=== PATIENT | female | born 1950 | race Caucasian/White ===

== ENCOUNTER 2016-12-24 12:31 | Inpatient (IN) | payer OTHER, MEDICARE ==
[~2016-12-24] VITALS: Ht 167.6 cm; Wt 60.0 kg
[~2016-12-24 12:31] MED LIST: AMBI10TA PO; ENAL10TA PO; ESTR1 PO; GLUC1000 PO; HYDR-3366 PO; SERT-132 PO; TRAZ100T5 PO; XANA2TAB2 PO; ZOCO40TA PO
[2016-12-24 12:34] VITALS: BP_SYST 118; BP_SYST 126; BP_DIAS 70; BP_DIAS 74; PULSE 85; PULSE 90; RESP 14; RESP 17; TEMP 97.7; O2SAT 98
--- NOTE | 2016-12-24 12:49 | PD ---
Physical Exam Time Seen by Provider: 12:46 Narrative 66yo F w c/o infection to left eye socket x 3days. 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 Had same symptoms one year ago and was hospitalized for cellulitis of left eye x1 week. Denies fever. Report nausea w/o vomiting. Patient stable. Patient seen in triage. Awaiting bed placement. Data Data Last Documented VS Vital Signs Date Time Temp Pulse Resp B/P Pulse Ox O2 Delivery O2 Flow Rate FiO2 12/24/16 12:34 97.7 85 14 126/74 98 MDM Supervised Visit with YOHANNES: Kacy German Dec 24, 2016 12:49
[2016-12-24] MEDS ORDERED: ONDANSETRON HCL 4 MG/2 ML VIAL IV PUSH ONE ×2 (13:30→15:30)
[2016-12-24] MEDS ORDERED: HYDROmorphone HCL PF 1 MG/ML VIAL IV PUSH ONE ×3 (13:30→22:00)
[2016-12-24] MEDS ORDERED: VANCOMYCIN INJ 1,000 MG in SODIUM CHLOR 0.9% 250 ML INJ 250 ML IV ONE (13:30)
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
[2016-12-24 14:15] LABS: AUTOMATED NEUTROPHIL # 8.8 TH/MM3 (1.8-7.7); BASOPHIL # 0.1 TH/MM3 (0-0.2); BASOPHIL % 0.4 % (0.0-2.0); EOSINOPHIL # 0.2 TH/MM3 (0-0.4); EOSINOPHIL % 1.4 % (0.0-4.0); HEMO FLAGS DIFF FINAL; LYMPH % 20.9 % (9.0-44.0); LYMPHOCYTE # 2.6 TH/MM3 (1.0-4.8); MEAN CELL VOLUME 92.1 FL (80.0-100.0); MEAN CORPUSCULAR HEMOGLOBIN 31.6 PG (27.0-34.0); MEAN CORPUSCULAR HGB CONC 34.3 % (32.0-36.0); MONO % 7.4 % (0.0-8.0); NEUT % 69.9 % (16.0-70.0); PLATELET COUNT 267 TH/MM3 (150-450); RED BLOOD COUNT 4.23 MIL/MM3 (4.00-5.30); RED CELL DISTRIBUTION WIDTH 13.8 % (11.6-17.2); WHITE BLOOD COUNT 12.6 TH/MM3 (4.0-11.0)
[2016-12-24 14:41] LABS: BICARBONATE 22.6 MEQ/L (21.0-32.0)
[2016-12-24 14:42] LABS: POTASSIUM 4.6 MEQ/L (3.5-5.1)
[2016-12-24 14:56] VITALS: BP 131/70; PULSE 72; RESP 18; O2SAT 97
[2016-12-24] MEDS ORDERED: IOHEXOL 350 MG/ML 10 ML VIAL (for RAD DIAG) IV ONE (15:40)
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
[2016-12-24] MEDS ORDERED: DEXTROSE 50% IN WATER 50 ML VIAL(D50) IV PUSH PRN (16:30)
[2016-12-24] MEDS ORDERED: GLUCAGON 1 MG/ML VIAL OTHER PRN (16:30)
[2016-12-24] MEDS ORDERED: RESP: ALBUTEROL 1.25 MG/3 ML NEB (PRN) NEB (17:00)
[2016-12-24] MEDS ORDERED: ACETAMINOPHEN 325 MG TAB PO PRN (17:00)
[2016-12-24] MEDS ORDERED: Vancomycin Consult Pharmacy 1 EA OTHER SCH (17:00)
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
[2016-12-24 18:10] VITALS: BP 141/71; PULSE 77; RESP 18; O2SAT 97
[2016-12-24] MEDS: cefTRIAXone INJ 1,000 MG in SODIUM CHLORIDE 0.9% INJ 100 ML IV SCH (18:29)
[2016-12-24] MEDS: ACETAMINOPHEN/HYDROcodone 325 MG/5 MG TAB PO PRN (18:34)
[2016-12-24 18:45] VITALS: BP 114/65; PULSE 58; RESP 16; TEMP 96.2; O2SAT 98
[2016-12-24 20:00] VITALS: BP 114/62; PULSE 60; RESP 20; TEMP 96; O2SAT 91
[2016-12-24] MEDS: PRAVASTATIN SOD 80 MG TAB PO SCH (21:24)
[2016-12-24] MEDS: traZODone HCL 100 MG TAB PO SCH (21:24)
[2016-12-24] MEDS: ALPRAZolam 1 MG TAB PO PRN (21:24)
[2016-12-24] MEDS: INSULIN ASPART SUPPLEMENTAL SCALE SQ SCH (21:27)
[2016-12-24] MEDS: ZOLPIDEM TARTRATE 10 MG TAB PO PRN (22:39)
[2016-12-25] VITALS: BP 100/54; PULSE 60; RESP 20; TEMP 96.7; O2SAT 91
[2016-12-25 04:00] VITALS: BP 92/55; PULSE 78; RESP 20; TEMP 96.6; O2SAT 95
[2016-12-25] MEDS: ACETAMINOPHEN/HYDROcodone 325 MG/5 MG TAB PO PRN ×2 (04:52→11:01)
[2016-12-25] MEDS: INSULIN ASPART SUPPLEMENTAL SCALE SQ SCH ×4 (06:13→21:14)
[2016-12-25] MEDS: ENALAPRIL MALEATE 10 MG TAB PO SCH (08:59)
[2016-12-25] MEDS: ESTRADIOL 1 MG TAB PO SCH (08:59)
[2016-12-25] MEDS: SERTRALINE HCL 50 MG TAB PO SCH (08:59)
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
[2016-12-25 10:17] VITALS: BP 118/63; PULSE 50; RESP 16; TEMP 96.2; O2SAT 97
[2016-12-25] MEDS: VANCOMYCIN INJ 1,250 MG in SODIUM CHLOR 0.9% 250 ML INJ 250 ML IV SCH (11:01)
--- NOTE | 2016-12-25 12:25 | HHI.PR ---
Subjective Remarks resting comfortably in no distress. pain is better. no fever. Objective Vitals Vital Signs Date Time Temp Pulse Resp B/P Pulse Ox O2 Delivery O2 Flow Rate FiO2 12/25/16 10:17 96.2 50 16 118/63 97 12/25/16 04:00 96.6 78 20 92/55 95 12/25/16 00:00 96.7 60 20 100/54 91 12/24/16 20:00 96.0 60 20 114/62 91 12/24/16 18:45 96.2 58 16 114/65 98 12/24/16 18:10 77 18 141/71 97 12/24/16 14:56 72 18 131/70 97 12/24/16 12:34 97.7 85 14 126/74 98 I/O 12/24/16 12/24/16 12/24/16 12/25/16 12/25/16 12/25/16 07:00 15:00 23:00 07:00 15:00 23:00 Intake Total 240 ml Balance 240 ml Intake Oral 240 ml # Voids 2 2 # Bowel Movements 0 0 Result Diagram: 12/24/16 1330 12/25/16 0908 Imaging Last Impressions Maxillofacial CT 12/24/16 0000 Signed Impressions: Service Date/Time: December 15:34 - CONCLUSION: Stable postsurgical and posttraumatic changes of the left lobe not significantly changed since 2014. Nate Cárdenas MD Objective Remarks GENERAL: This is a well-nourished, well-developed patient, in no apparent distress. HEENT; left eye erythema and discharge is better. CARDIOVASCULAR: Regular rate and regular rhythm without murmurs, gallops, or rubs. RESPIRATORY: Clear to auscultation. Breath sounds equal bilaterally. No wheezes , rales, or rhonchi. GASTROINTESTINAL: Abdomen soft, non-tender, nondistended. Normal, active bowel sounds MUSCULOSKELETAL: Extremities without clubbing, cyanosis, or edema. NEURO: Alert & Oriented x4 to person, place, time, situation. Moves all ext x4 Medications and IVs Current Medications Vancomycin HCl/ Sodium Chloride (Vancomycin Inj/ NS 250 ml Inj) 250 ml @ 250 mls/hr ONCE ONCE IV Last administered on 12/24/16t 14:13; Start 12/24/16 at 13 :30; Stop 12/24/16 at 14:29; Status DC Hydromorphone HCl (Dilaudid Pf Inj) 0.5 mg ONCE ONCE IV PUSH Last administered on 12/24/16 14:12; Start 12/24/16 at 13:30; Stop 12/24/16 at 13:31 ; Status DC Ondansetron HCl (Zofran Inj) 4 mg ONCE ONCE IV PUSH Last administered on 14:12; Start 12/24/16 at 13:30; Stop 12/24/16 at 13:31; Status DC Hydromorphone HCl (Dilaudid Pf Inj) 0.5 mg ONCE ONCE IV PUSH Last administered on 12/24/16 15:36; Start 12/24/16 at 15:30; Stop 12/24/16 at 15:31 ; Status DC Ondansetron HCl (Zofran Inj) 4 mg ONCE ONCE IV PUSH Last administered on 15:36; Start 12/24/16 at 15:30; Stop 12/24/16 at 15:31; Status DC Iohexol (Omnipaque 350 Inj) 75 ml STK-MED ONCE IV Last administered on 15:40; Start 12/24/16 at 15:40; Stop 12/24/16 at 15:41; Status DC Acetaminophen (Tylenol) 650 mg Q4H PRN PO FEVER\ PAIN SCALE LESS THAN 5; Start 12/24/16 at 17:00 Acetaminophen/ Hydrocodone Bitart ([place] 5-325 Mg) 1 tab Q4H PRN PO PAIN SCALE GREATER THAN 5 Last administered on 12/25/16 11:01; Start 12/24/16 at 16: 30 Ondansetron HCl (Zofran Inj) 4 mg Q8HR PRN IV PUSH NAUSEA; Start 12/24/16 at 22 :00 Alprazolam (Xanax) 2 mg BID PRN PO ANXIETY Last administered on 12/24/16 21:24 ; Start 12/24/16 at 21:00 Enalapril Maleate (Vasotec) 10 mg DAILY PO Last administered on 12/25/16 08:59 ; Start 12/25/16 at 09:00 Estradiol (Estradiol) 1 mg DAILY PO Last administered on 12/25/16 08:59; Start 12/25/16 at 09:00 Sertraline HCl (Zoloft) 50 mg DAILY PO Last administered on 12/25/16 08:59; Start 12/25/16 at 09:00 Zolpidem Tartrate (Ambien) 10 mg HS PRN PO INSOMNIA Last administered on 22:39; Start 12/24/16 at 21:00 Pravastatin Sodium (Pravachol) 80 mg HS PO Last administered on 12/24/16 21:24 ; Start 12/24/16 at 21:00 Trazodone HCl (Desyrel) 100 mg HS PO Last administered on 12/24/16 21:24; Start 12/24/16 at 21:00 Dextrose (D50w (Vial) Inj) 25 ml UNSCH PRN IV PUSH HYPOGLYCEMIA-SEE COMMENTS; Start 12/24/16 at 16:30 Glucagon (Glucagon Inj) 1 mg UNSCH PRN OTHER HYPOGLYCEMIA-SEE COMMENTS; Start 12/24/16 at 16:30 Insulin Aspart 1 1 ACHS SLIDING SCALE SQ Last administered on 12/25/16 11:01 ; Start 12/24/16 at 21:00 Pharmacy Profile Note 0 ml @ 0 mls/hr UNSCH OTHER ; Start 12/24/16 at 17:00 Ceftriaxone Sodium/Sodium Chloride (Rocephin Inj/NS Inj) 100 ml @ 200 mls/hr Q24H IV Last administered on 12/24/16 18:29; Start 12/24/16 at 18:00 Albuterol Sulfate 1.25 mg 1.25 mg Q6HR NEB PRN NEB SHORTNESS OF BREATH; Start 12/24/16 at 17:00 Vancomycin HCl/ Sodium Chloride (Vancomycin Inj/ NS 250 ml Inj) 262.5 ml @ 250 mls/hr Q24H IV Last administered on 12/25/16 11:01; Start 12/25/16 at 12:00 Miscellaneous Information SPECIFIC LAB TO BE DRAWN:VANCOMYCIN TROUGH DATE TO... ONCE ONCE .XX ; Start 12/27/16 at 11:45; Stop 12/27/16 at 11:46 Hydromorphone HCl (Dilaudid Pf Inj) 0.5 mg ONCE ONCE IV PUSH Last administered on 12/24/16 22:40; Start 12/24/16 at 22:00; Stop 12/24/16 at 22:02 ; Status DC Tobramycin/ Dexamethasone (Tobradex Opth Susp) 1 drop Q6HR LEFT EYE ; Start at 13:00 A/P Assessment and Plan A/P - preorbital cellulitis left eye- with history of enucleation continue with broad spectrum IV antibiotics and pain control- ophthalmology consult appreciated; Tobradex eye drop was added. -diabetes mellitus; accu-check with SSI -hypertension/ dyslipidemia/ COPD; resumed home meds -DVT prophylaxis with SCD's Discharge Planning possible dc home in am if continues to improve. Renard Ennis MD Dec 25, 2016 12:25
[2016-12-25 12:26] VITALS: BP 95/59; PULSE 61; RESP 16; TEMP 96.2; O2SAT 96
[2016-12-25] MEDS: TOBRAMYCIN 0.3%/DEXAMETHASONE 0.1% OPHT SUSP 5 ML BTL LEFT EYE SCH ×3 (13:00→23:30)
[2016-12-25] MEDS: ACETAMINOPHEN/HYDROcodone 325 MG/10 MG TAB PO PRN ×2 (15:27→21:15)
[2016-12-25] MEDS: cefTRIAXone INJ 1,000 MG in SODIUM CHLORIDE 0.9% INJ 100 ML IV SCH (17:21)
[2016-12-25 18:52] VITALS: BP 112/56; PULSE 62; RESP 16; TEMP 96.8; O2SAT 97
[2016-12-25] MEDS: traZODone HCL 100 MG TAB PO SCH (21:14)
[2016-12-25] MEDS: PRAVASTATIN SOD 80 MG TAB PO SCH (21:14)
[2016-12-25 22:00] VITALS: BP 99/65; PULSE 55; RESP 20; TEMP 97.2; O2SAT 98
[2016-12-25] MEDS: ZOLPIDEM TARTRATE 10 MG TAB PO PRN (23:30)
[2016-12-25] MEDS: ALPRAZolam 1 MG TAB PO PRN (23:30)
[2016-12-26] VITALS: BP 103/60; PULSE 58; RESP 20; TEMP 96; O2SAT 98
[2016-12-26 04:00] VITALS: BP 91/58; PULSE 54; RESP 20; TEMP 96.4; O2SAT 98
[2016-12-26] MEDS: ACETAMINOPHEN/HYDROcodone 325 MG/10 MG TAB PO PRN ×3 (04:13→18:11)
[2016-12-26] MEDS: ONDANSETRON HCL 4 MG/2 ML VIAL IV PUSH PRN ×2 (04:14→11:04)
[2016-12-26] MEDS: TOBRAMYCIN 0.3%/DEXAMETHASONE 0.1% OPHT SUSP 5 ML BTL LEFT EYE SCH ×4 (05:42→23:54)
[2016-12-26] MEDS: INSULIN ASPART SUPPLEMENTAL SCALE SQ SCH ×4 (06:20→20:37)
[2016-12-26 08:00] VITALS: BP 108/58; PULSE 50; RESP 16; TEMP 96.8; O2SAT 94
[2016-12-26] MEDS: SERTRALINE HCL 50 MG TAB PO SCH (08:22)
[2016-12-26] MEDS: ESTRADIOL 1 MG TAB PO SCH (08:22)
[2016-12-26] MEDS: ENALAPRIL MALEATE 10 MG TAB PO SCH (08:23)
[2016-12-26] MEDS: VANCOMYCIN INJ 1,250 MG in SODIUM CHLOR 0.9% 250 ML INJ 250 ML IV SCH (11:04)
--- NOTE | 2016-12-26 11:17 | HHI.PR ---
Subjective Remarks resting comfortably with no distress. no fever. pain is better. noted that BP is on low side. d/w the RN and no other acute issues over night. Objective Vitals Vital Signs Date Time Temp Pulse Resp B/P Pulse Ox O2 Delivery O2 Flow Rate FiO2 12/26/16 08:00 96.8 50 16 108/58 94 12/26/16 04:00 96.4 54 20 91/58 98 12/26/16 00:00 96.0 58 20 103/60 98 12/25/16 22:00 97.2 55 20 99/65 98 12/25/16 18:52 96.8 62 16 112/56 97 12/25/16 16:27 18 12/25/16 12:26 96.2 61 16 95/59 96 I/O 12/25/16 12/25/16 12/25/16 12/26/16 12/26/16 12/26/16 07:00 15:00 23:00 07:00 15:00 23:00 Intake Total 253 ml Balance 253 ml IV Total 253 ml # Voids 2 7 # Bowel Movements 0 Result Diagram: 12/24/16 1330 12/26/16 0734 Imaging Last Impressions Maxillofacial CT 12/24/16 0000 Signed Impressions: Service Date/Time: December 15:34 - CONCLUSION: Stable postsurgical and posttraumatic changes of the left lobe not significantly changed since 2014. Nate Cárdenas MD Objective Remarks GENERAL: This is a well-nourished, well-developed patient, in no apparent distress. HEENT; left eye erythema and discharge has improved. CARDIOVASCULAR: Regular rate and regular rhythm without murmurs, gallops, or rubs. RESPIRATORY: Clear to auscultation. Breath sounds equal bilaterally. No wheezes , rales, or rhonchi. GASTROINTESTINAL: Abdomen soft, non-tender, nondistended. Normal, active bowel sounds MUSCULOSKELETAL: Extremities without clubbing, cyanosis, or edema. NEURO: Alert & Oriented x4 to person, place, time, situation. Moves all ext x4 Medications and IVs Current Medications Vancomycin HCl/ Sodium Chloride (Vancomycin Inj/ NS 250 ml Inj) 250 ml @ 250 mls/hr ONCE ONCE IV Last administered on 12/24/16t 14:13; Start 12/24/16 at 13 :30; Stop 12/24/16 at 14:29; Status DC Hydromorphone HCl (Dilaudid Pf Inj) 0.5 mg ONCE ONCE IV PUSH Last administered on 12/24/16 14:12; Start 12/24/16 at 13:30; Stop 12/24/16 at 13:31 ; Status DC Ondansetron HCl (Zofran Inj) 4 mg ONCE ONCE IV PUSH Last administered on 14:12; Start 12/24/16 at 13:30; Stop 12/24/16 at 13:31; Status DC Hydromorphone HCl (Dilaudid Pf Inj) 0.5 mg ONCE ONCE IV PUSH Last administered on 12/24/16 15:36; Start 12/24/16 at 15:30; Stop 12/24/16 at 15:31 ; Status DC Ondansetron HCl (Zofran Inj) 4 mg ONCE ONCE IV PUSH Last administered on 15:36; Start 12/24/16 at 15:30; Stop 12/24/16 at 15:31; Status DC Iohexol (Omnipaque 350 Inj) 75 ml STK-MED ONCE IV Last administered on 15:40; Start 12/24/16 at 15:40; Stop 12/24/16 at 15:41; Status DC Acetaminophen (Tylenol) 650 mg Q4H PRN PO FEVER\ PAIN SCALE LESS THAN 5; Start 12/24/16 at 17:00 Acetaminophen/ Hydrocodone Bitart ([place] 5-325 Mg) 1 tab Q4H PRN PO PAIN SCALE GREATER THAN 5 Last administered on 12/25/16 11:01; Start 12/24/16 at 16: 30; Stop 12/25/16 at 12:24; Status DC Ondansetron HCl (Zofran Inj) 4 mg Q8HR PRN IV PUSH NAUSEA Last administered on 12/26/16 04:14; Start 12/24/16 at 22:00 Alprazolam (Xanax) 2 mg BID PRN PO ANXIETY Last administered on 12/25/16 23:30 ; Start 12/24/16 at 21:00 Enalapril Maleate (Vasotec) 10 mg DAILY PO Last administered on 12/25/16 08:59 ; Start 12/25/16 at 09:00 Estradiol (Estradiol) 1 mg DAILY PO Last administered on 12/26/16 08:22; Start 12/25/16 at 09:00 Sertraline HCl (Zoloft) 50 mg DAILY PO Last administered on 12/26/16 08:22; Start 12/25/16 at 09:00 Zolpidem Tartrate (Ambien) 10 mg HS PRN PO INSOMNIA Last administered on 23:30; Start 12/24/16 at 21:00 Pravastatin Sodium (Pravachol) 80 mg HS PO Last administered on 12/25/16 21:14 ; Start 12/24/16 at 21:00 Trazodone HCl (Desyrel) 100 mg HS PO Last administered on 12/25/16 21:14; Start 12/24/16 at 21:00 Dextrose (D50w (Vial) Inj) 25 ml UNSCH PRN IV PUSH HYPOGLYCEMIA-SEE COMMENTS; Start 12/24/16 at 16:30 Glucagon (Glucagon Inj) 1 mg UNSCH PRN OTHER HYPOGLYCEMIA-SEE COMMENTS; Start 12/24/16 at 16:30 Insulin Aspart 1 1 ACHS SLIDING SCALE SQ Last administered on 12/26/16 06:20 ; Start 12/24/16 at 21:00 Pharmacy Profile Note 0 ml @ 0 mls/hr UNSCH OTHER ; Start 12/24/16 at 17:00 Ceftriaxone Sodium/Sodium Chloride (Rocephin Inj/NS Inj) 100 ml @ 200 mls/hr Q24H IV Last administered on 12/25/16 17:21; Start 12/24/16 at 18:00 Albuterol Sulfate 1.25 mg 1.25 mg Q6HR NEB PRN NEB SHORTNESS OF BREATH; Start 12/24/16 at 17:00 Vancomycin HCl/ Sodium Chloride (Vancomycin Inj/ NS 250 ml Inj) 262.5 ml @ 250 mls/hr Q24H IV Last administered on 12/25/16 11:01; Start 12/25/16 at 12:00 Miscellaneous Information SPECIFIC LAB TO BE DRAWN:VANCOMYCIN TROUGH DATE TO... ONCE ONCE .XX ; Start 12/27/16 at 11:45; Stop 12/27/16 at 11:46 Hydromorphone HCl (Dilaudid Pf Inj) 0.5 mg ONCE ONCE IV PUSH Last administered on 12/24/16 22:40; Start 12/24/16 at 22:00; Stop 12/24/16 at 22:02 ; Status DC Tobramycin/ Dexamethasone (Tobradex Opth Susp) 1 drop Q6HR LEFT EYE Last administered on 12/26/16 05:42; Start 12/25/16 at 13:00 Acetaminophen/ Hydrocodone Bitart ([place] 10-325 Mg) 1 tab Q6H PRN PO PAIN > 5 Last administered on 12/26/16 04:13; Start 12/25/16 at 12:30 A/P Assessment and Plan A/P - preorbital cellulitis left eye- with history of enucleation - improving. continue with broad spectrum IV antibiotics and pain control- ophthalmology consult appreciated; Tobradex eye drop was added. -diabetes mellitus; accu-check with SSI -hypertension with BP on low side; hold enalapril and continue to monitor - dyslipidemia/ COPD; resumed home meds -DVT prophylaxis with SCD's Discharge Planning dc home in am if stable. Renard Ennis MD Dec 26, 2016 11:17
[2016-12-26] MEDS: NICOTINE 21 MG/24 HR PATCH T-DERMAL SCH (11:35)
[2016-12-26 12:00] VITALS: BP 123/64; PULSE 54; RESP 18; TEMP 97.2; O2SAT 97
[2016-12-26 16:00] VITALS: BP 124/69; PULSE 68; RESP 17; TEMP 95.8; O2SAT 97
[2016-12-26] MEDS: cefTRIAXone INJ 1,000 MG in SODIUM CHLORIDE 0.9% INJ 100 ML IV SCH (18:11)
[2016-12-26] MEDS: traZODone HCL 100 MG TAB PO SCH (20:37)
[2016-12-26] MEDS: ALPRAZolam 1 MG TAB PO PRN (20:37)
[2016-12-26] MEDS: PRAVASTATIN SOD 80 MG TAB PO SCH (20:37)
[2016-12-26] MEDS: ZOLPIDEM TARTRATE 10 MG TAB PO PRN (22:02)
[2016-12-26 22:30] VITALS: BP 125/60; PULSE 68; RESP 17; TEMP 97.7; O2SAT 98
[2016-12-27 05:15] VITALS: BP 115/69; PULSE 64; RESP 17; TEMP 97.1; O2SAT 98
[2016-12-27] MEDS: TOBRAMYCIN 0.3%/DEXAMETHASONE 0.1% OPHT SUSP 5 ML BTL LEFT EYE SCH ×2 (06:09→12:00)
[2016-12-27] MEDS: ACETAMINOPHEN/HYDROcodone 325 MG/10 MG TAB PO PRN ×2 (06:10→12:45)
[2016-12-27] MEDS: INSULIN ASPART SUPPLEMENTAL SCALE SQ SCH ×2 (06:53→11:00)
[2016-12-27 08:00] VITALS: BP 124/60; PULSE 58; RESP 18; TEMP 98.2; O2SAT 96
[2016-12-27] MEDS: SERTRALINE HCL 50 MG TAB PO SCH (08:22)
[2016-12-27] MEDS: ESTRADIOL 1 MG TAB PO SCH (08:22)
[2016-12-27] MEDS: NICOTINE 21 MG/24 HR PATCH T-DERMAL SCH (08:22)
[2016-12-27] MEDS ORDERED: REMOVE OLD PATCH T-DERMAL SCH (09:00)
--- NOTE | 2016-12-27 09:26 | HHI.PR ---
Subjective Remarks resting comfortably with no distress. no fever. the left eye inflammation has much improved. no other new complaints. Objective Vitals Vital Signs Date Time Temp Pulse Resp B/P Pulse Ox O2 Delivery O2 Flow Rate FiO2 12/27/16 08:00 98.2 58 18 124/60 96 12/27/16 05:15 97.1 64 17 115/69 98 12/26/16 22:30 97.7 68 17 125/60 98 12/26/16 16:00 95.8 68 17 124/69 97 12/26/16 12:00 97.2 54 18 123/64 97 I/O 12/26/16 12/26/16 12/26/16 12/27/16 12/27/16 12/27/16 07:00 15:00 23:00 07:00 15:00 23:00 Intake Total 800 ml 600 ml Balance 800 ml 600 ml Intake Oral 800 ml 600 ml # Voids 1 2 # Bowel Movements 0 0 Result Diagram: 12/24/16 1330 12/26/16 0734 Imaging Last Impressions Maxillofacial CT 12/24/16 0000 Signed Impressions: Service Date/Time: December 15:34 - CONCLUSION: Stable postsurgical and posttraumatic changes of the left lobe not significantly changed since 2014. Nate Cárdenas MD Objective Remarks GENERAL: This is a well-nourished, well-developed patient, in no apparent distress. HEENT; left eye erythema and discharge has much improved. CARDIOVASCULAR: Regular rate and regular rhythm without murmurs, gallops, or rubs. RESPIRATORY: Clear to auscultation. Breath sounds equal bilaterally. No wheezes , rales, or rhonchi. GASTROINTESTINAL: Abdomen soft, non-tender, nondistended. Normal, active bowel sounds MUSCULOSKELETAL: Extremities without clubbing, cyanosis, or edema. NEURO: Alert & Oriented x4 to person, place, time, situation. Moves all ext x4 Procedures none Medications and IVs Current Medications Vancomycin HCl/ Sodium Chloride (Vancomycin Inj/ NS 250 ml Inj) 250 ml @ 250 mls/hr ONCE ONCE IV Last administered on 12/24/16t 14:13; Start 12/24/16 at 13 :30; Stop 12/24/16 at 14:29; Status DC Hydromorphone HCl (Dilaudid Pf Inj) 0.5 mg ONCE ONCE IV PUSH Last administered on 12/24/16 14:12; Start 12/24/16 at 13:30; Stop 12/24/16 at 13:31 ; Status DC Ondansetron HCl (Zofran Inj) 4 mg ONCE ONCE IV PUSH Last administered on 14:12; Start 12/24/16 at 13:30; Stop 12/24/16 at 13:31; Status DC Hydromorphone HCl (Dilaudid Pf Inj) 0.5 mg ONCE ONCE IV PUSH Last administered on 12/24/16 15:36; Start 12/24/16 at 15:30; Stop 12/24/16 at 15:31 ; Status DC Ondansetron HCl (Zofran Inj) 4 mg ONCE ONCE IV PUSH Last administered on 15:36; Start 12/24/16 at 15:30; Stop 12/24/16 at 15:31; Status DC Iohexol (Omnipaque 350 Inj) 75 ml STK-MED ONCE IV Last administered on 15:40; Start 12/24/16 at 15:40; Stop 12/24/16 at 15:41; Status DC Acetaminophen (Tylenol) 650 mg Q4H PRN PO FEVER\ PAIN SCALE LESS THAN 5; Start 12/24/16 at 17:00 Acetaminophen/ Hydrocodone Bitart ([place] 5-325 Mg) 1 tab Q4H PRN PO PAIN SCALE GREATER THAN 5 Last administered on 12/25/16 11:01; Start 12/24/16 at 16: 30; Stop 12/25/16 at 12:24; Status DC Ondansetron HCl (Zofran Inj) 4 mg Q8HR PRN IV PUSH NAUSEA Last administered on 12/26/16 11:04; Start 12/24/16 at 22:00 Alprazolam (Xanax) 2 mg BID PRN PO ANXIETY Last administered on 12/26/16 20:37 ; Start 12/24/16 at 21:00 Enalapril Maleate (Vasotec) 10 mg DAILY PO Last administered on 12/25/16 08:59 ; Start 12/25/16 at 09:00; Status Hold Estradiol (Estradiol) 1 mg DAILY PO Last administered on 12/27/16 08:22; Start 12/25/16 at 09:00 Sertraline HCl (Zoloft) 50 mg DAILY PO Last administered on 12/27/16 08:22; Start 12/25/16 at 09:00 Zolpidem Tartrate (Ambien) 10 mg HS PRN PO INSOMNIA Last administered on 22:02; Start 12/24/16 at 21:00 Pravastatin Sodium (Pravachol) 80 mg HS PO Last administered on 12/26/16 20:37 ; Start 12/24/16 at 21:00 Trazodone HCl (Desyrel) 100 mg HS PO Last administered on 12/26/16 20:37; Start 12/24/16 at 21:00 Dextrose (D50w (Vial) Inj) 25 ml UNSCH PRN IV PUSH HYPOGLYCEMIA-SEE COMMENTS; Start 12/24/16 at 16:30 Glucagon (Glucagon Inj) 1 mg UNSCH PRN OTHER HYPOGLYCEMIA-SEE COMMENTS; Start 12/24/16 at 16:30 Insulin Aspart 1 1 ACHS SLIDING SCALE SQ Last administered on 12/27/16 06:53 ; Start 12/24/16 at 21:00 Pharmacy Profile Note 0 ml @ 0 mls/hr UNSCH OTHER ; Start 12/24/16 at 17:00 Ceftriaxone Sodium/Sodium Chloride (Rocephin Inj/NS Inj) 100 ml @ 200 mls/hr Q24H IV Last administered on 12/26/16 18:11; Start 12/24/16 at 18:00 Albuterol Sulfate 1.25 mg 1.25 mg Q6HR NEB PRN NEB SHORTNESS OF BREATH; Start 12/24/16 at 17:00 Vancomycin HCl/ Sodium Chloride (Vancomycin Inj/ NS 250 ml Inj) 262.5 ml @ 250 mls/hr Q24H IV Last administered on 12/26/16 11:04; Start 12/25/16 at 12:00 Miscellaneous Information SPECIFIC LAB TO BE DRAWN:VANCOMYCIN TROUGH DATE TO... ONCE ONCE .XX ; Start 12/27/16 at 11:45; Stop 12/27/16 at 11:46 Hydromorphone HCl (Dilaudid Pf Inj) 0.5 mg ONCE ONCE IV PUSH Last administered on 12/24/16 22:40; Start 12/24/16 at 22:00; Stop 12/24/16 at 22:02 ; Status DC Tobramycin/ Dexamethasone (Tobradex Opth Susp) 1 drop Q6HR LEFT EYE Last administered on 12/27/16 06:09; Start 12/25/16 at 13:00 Acetaminophen/ Hydrocodone Bitart ([place] 10-325 Mg) 1 tab Q6H PRN PO PAIN > 5 Last administered on 12/27/16 06:10; Start 12/25/16 at 12:30 Nicotine (Habitrol 21 Mg Patch.24 Hr) 1 patch DAILY T-DERMAL Last administered on 12/27/16 08:22; Start 12/26/16 at 12:00 Miscellaneous Information 1 DAILY T-DERMAL Last administered on 12/27/16 08:22 ; Start 12/27/16 at 09:00 A/P Assessment and Plan A/P - preorbital cellulitis left eye- with history of enucleation -has much improved. continue with broad spectrum IV antibiotics and pain control- ophthalmology consult appreciated; Tobradex eye drop was added. will switch to po abx upon discharge. -diabetes mellitus; accu-check with SSI -hypertension with BP on low side; will decrease the dose of enalapril. f/u as outpatient. - dyslipidemia/ COPD; resumed home meds -DVT prophylaxis with SCD's Discharge Planning dc home today. see med list. f/u; pcp. d/w the patient. Renard Ennis MD Dec 27, 2016 09:26
[2016-12-27] MEDS ORDERED: BACT800T5 PO ×2 (09:31→09:35)
[2016-12-27] MEDS ORDERED: NICO21DI2 T-DERMAL (09:31)
[2016-12-27] MEDS ORDERED: AUGM875T PO ×2 (09:31→09:35)
[2016-12-27] MEDS ORDERED: TOBRO LEFT EYE ×2 (09:31→09:35)
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
[2016-12-27] MEDS ORDERED: ENAL2.5T PO (09:42)
[2016-12-27] MEDS ORDERED: PHARMACY ORDERED LAB ONE (11:45)
[2016-12-27] MEDS: ONDANSETRON HCL 4 MG/2 ML VIAL IV PUSH PRN (11:51)
[2016-12-27 12:00] VITALS: BP 128/62; PULSE 54; RESP 18; TEMP 98.1; O2SAT 96
[2016-12-27] MEDS: VANCOMYCIN INJ 1,250 MG in SODIUM CHLOR 0.9% 250 ML INJ 250 ML IV SCH (12:44)
[2016-12-28] MEDS ORDERED: VANCOMYCIN 1,000 MG/NS 250 ML IV SCH ×2
[2016-12-28] MEDS ORDERED: PHARMACY ORDERED LAB ONE (23:45)
== END 2016-12-27 16:55 | disposition home or self-care (01) | DRG 603 ==
LOC: NEPC 12:31 → NEDA 16:25 → OBSVTOIN 17:11 → N05B 18:54
PROVIDERS: ADMIT Internal Medicine; ATTEND Internal Medicine
DX: L03.213 Periorbital cellulitis (principal); J44.9 Chronic obstructive pulmonary disease, unspecified; I10 Essential (primary) hypertension; E78.5 Hyperlipidemia, unspecified; E11.9 Type 2 diabetes mellitus without complications; F41.9 Anxiety disorder, unspecified; F17.210 Nicotine dependence, cigarettes, uncomplicated; G47.00 Insomnia, unspecified; H00.16 Chalazion left eye, unspecified eyelid; Z79.84 Long term (current) use of oral hypoglycemic drugs
CPT/HCPCS: 70487; 80048; 80202; 82565; 82948; 83735; 85025; 86140; 86403; 87040; 87070; 87205; 96365; 96366; 96374; 96375; 96376; J0696; J1170; J1815; J2405; J3370; J7050; Q9967

== ENCOUNTER 2017-01-06 07:01 | Day surgery (SDC) | payer OTHER ==
[~2017-01-06] VITALS: Ht 157.5 cm; Wt 54.5 kg
[~2017-01-06 07:01] MED LIST changes: +AUGM875T PO; +BACT800T5 PO; -ENAL10TA PO; +ENAL2.5T PO; +NICO21DI2 T-DERMAL; +TOBRO LEFT EYE
[2017-01-06 07:44] VITALS: BP 125/86; PULSE 62; RESP 20; TEMP 98.2; O2SAT 95
[2017-01-06] MEDS ORDERED: DIAZEPAM 5 MG TAB PO SCH (08:45)
[2017-01-06 08:55] LABS: APTT (PATIENT) 25.1 SEC (24.3-30.1); PROTHROMBIN TIME - PATIENT 10.5 SEC (9.8-11.6)
[2017-01-06] MEDS ORDERED: LACTATED RINGER'S 1000 ML INJ 1,000 ML IV SCH (09:00)
--- NOTE | 2017-01-06 10:40 | PD.RAD ---
Post Procedure Progress Note Pre Procedure Diagnosis: (1) Headache Post Procedure Diagnosis: (1) Headache Procedure Date: January 06, 2017 Supervising Radiologist: Telly Villa JR Proceduralist/Assist: Caridad Hernandez, RT(R), RT Azeem(R)() Anesthesia: Local Plan of Activity Patient to Unit: ROPU Patient Condition: Good See PACS Report for procedural detail/treatment Spinal Procedure Myelogram L3-L4 Fluid Removal (CCs): 0 Fluid Description: Clear Findings: Cervical myelogram performed via a lumbar approach. Clear CSF noted. No sampling requested. Plan To CT for further imaging Jr. Allen,Telly Carpenter MD January 06, 2017 10:40
[2017-01-06] MEDS ORDERED: IOHEXOL 300 MG/ML 50 ML BTL (for RAD DIAG) ONE (10:41)
[2017-01-06 11:15] VITALS: BP 118/65; PULSE 56; RESP 15; TEMP 97.9; O2SAT 95
[2017-01-06 11:30] VITALS: BP 122/74; PULSE 48; RESP 15; O2SAT 95
[2017-01-06 12:00] VITALS: BP 127/75; PULSE 48; RESP 15; O2SAT 95
--- NOTE | 2017-01-06 12:17 | RADRPT ---
EXAM DATE/TIME: 01/06/2017 11:05 [facility] COMPARISON: No previous studies available for comparison. INDICATIONS : Post myelogram evaluation. RADIATION DOSE: 21.76 CTDIvol (mGy) MEDICAL HISTORY : Stroke. Hypertension. Gastroesophageal reflux disease. SURGICAL HISTORY : None. ENCOUNTER: Initial ACUITY: 1 day PAIN SCALE: 3/10 LOCATION: neck TECHNIQUE: Volumetric scanning of the cervical spine was performed. Multiplanar reconstructions in the sagittal, coronal and oblique axial planes were performed. Using automated exposure control and adjustment o f the mA and/or kV according to patient size, radiation dose was kept as low as reasonably achievable to obtain optimal diagnostic quality images. FINDINGS: There is reversal of the normal cervical lordosis. Cervical spondylosis is noted at C4-5, C5-6 and C 6-7 and to a lesser extent at C3-4. Disc space narrowing as well as anterior and posterior osteophyt ic ridging is noted from C4 through C7 and to a lesser extent at C3-4. Moderate bilateral foraminal narrowing is noted at C3-4. Moderate left neural foraminal narrowing is noted at C4-5 and C5-6. Mil d bilateral foraminal narrowing is noted at C6-7. Mild neural foraminal narrowing is also noted at C 5-6. No significant bony spinal canal stenosis is noted. no acute fracture or prevertebral soft tis christos swelling is noted. The cervical spinal cord is unremarkable. C2-3: There is no significant spinal stenosis or neural foraminal narrowing. C3-4: There is a minimal diffuse disc osteophyte complex as well as uncovertebral joint spurring paramjit aterally resulting in moderate bilateral foraminal narrowing. No spinal stenosis is noted. C4-5: Mild diffuse disc osteophyte complex and uncovertebral joint spurring results in moderate lef t neural foraminal narrowing and mild right neural foraminal narrowing. No spinal stenosis or focal disc herniation is noted. C5-6: There is a mild diffuse disc osteophyte complex as well as uncovertebral joint spurring resul ting in moderate left neural foraminal narrowing and mild neural foraminal narrowing but no spinal st enosis. No focal disc herniation is noted. C6-7: There is a mild diffuse disc osteophyte complex and uncovertebral joint spurring resulting in mild bilateral neural foraminal narrowing but no spinal stenosis. No focal disc herniation is noted . C7-T1: There is no significant spinal stenosis or neural foraminal narrowing. CONCLUSION: 1. No spinal stenosis or focal disc herniation. 2. Moderate bilateral foraminal narrowing at C3-4, moderate left neural foraminal narrowing and mild right neural foraminal narrowing at C4-5 and C5-6 and mild bilateral foraminal narrowing at C6-7. 3. Diffuse cervical spondylosis from C3 through C7. 4. Reversal of the normal cervical lordosis. Scout Chavarria MD on January 06, 2017 at 11:49 Board Certified Radiologist. This report was verified electronically.
[2017-01-06 12:30] VITALS: BP 126/70; PULSE 48; RESP 15; O2SAT 95
--- NOTE | 2017-01-06 14:27 | RADRPT ---
EXAM DATE/TIME: 01/06/2017 10:29 [facility] COMPARISON: CT CERVICAL SPINE W/O CONTRAST, January 06, 2017, 11:05. INDICATIONS : Patient with a history of spondylosis. MEDICAL HISTORY : HTN COPD Diabetes Dyslipidemia SURGICAL HISTORY : Hysterectomy Cholecystectomy Enucleation left eye ENCOUNTER: Initial ACUITY: > 1 year PAIN SCORE: 8/10 LOCATION: Neck LUMBAR PUNCTURE TIME: 1029 hours FLUORO TIME: 0.95 minutes IMAGE SERIES: 4 CONTRAST: 18 cc Omnipaque (iohexol) 300 ACCESS LEVEL: L3-4 PROCEDURE : 1. Fluoroscopic guided lumbar puncture. 2. Instillation of intrathecal contrast. 3. Cervical myelogram. The risks, benefits and alternatives to the procedure were explained and verbal and written consent w as obtained. The site was prepped in sterile fashion. Full sterile technique was used, including ca p, mask, sterile gloves and gown and a large sterile sheet. Hand hygiene and 2% chlorhexidine and/or betadine/alcohol prep was utilized per protocol for cutaneous antisepsis. The skin and subcutaneous tissues were infiltrated with local anesthetic solution. With fluoroscopic guidance the lumbar thecal sac was punctured at level above and a diagnostic quanti ty of contrast is present in the subarachnoid space. Under fluoroscopic guidance contrast was moved t o the cervical region. The patient tolerated procedure well and there were no complications. CT scan is to be performed for further evaluation. CONCLUSION: Uncomplicated cervical myelogram as above. CT scan is to be performed for further evaluation. Telly Villa Jr., MD on January 06, 2017 at 13:57 Board Certified Radiologist. This report was verified electronically.
== END 2017-01-06 15:00 | disposition home or self-care (01) ==
LOC: HROP 07:01 → HRIP 07:02 → HROP 15:00
PROVIDERS: ATTEND Neurological Surgery
DX: R51 Headache (principal); E11.9 Type 2 diabetes mellitus without complications; I10 Essential (primary) hypertension; J44.9 Chronic obstructive pulmonary disease, unspecified; Z01.818 Encounter for other preprocedural examination
CPT/HCPCS: 62302; 72125; 85610; 85730; J7120; Q9967